=== PATIENT | female | born 1940 | race Caucasian/White ===

== ENCOUNTER 2020-01-14 12:03 | Inpatient (IN) ==
[2020-01-14 12:49] LABS: Bilirubin,Urine Negative (Negative); Blood,Urine Negative (Negative); Clarity,Urine Clear (Clear); Color,Urine Dark Yellow (Yellow); Glucose,Urine (UA) Normal (Normal); Ketones,Urine Trace mg/dL (Negative); Leukocyte Esterase,Urine Trace (Negative); Nitrite,Urine Negative (Negative); Protein,Urine 30 mg/dL (Neg-Trace); Specific Gravity,Urine 1.024 (1.010-1.025); Urobilinogen,Urine Normal (Normal)
[2020-01-14 12:51] LABS: Basophils # 0.1 K/mcL (0.0-0.2); Basophils % 0.8 %; Eosinophils # 0.2 K/mcL (0.0-0.6); Eosinophils % 1.6 %; Hematocrit 42.4 % (35.3-44.9); Hemoglobin 13.7 g/dL (11.5-15.4); Immature Granulocytes % 0.5 % (0-4); Lymphocytes # 1.8 K/mcL (0.6-4.6); Lymphocytes % 19.1 %; Mean Corpuscular HGB Conc 32.3 g/dL (31.6-35.5); Mean Corpuscular Hemoglobin 28.3 pg (28.0-33.3); Mean Corpuscular Volume 87.6 fL (83.0-100.0); Mean Platelet Volume 10.1 fL (9.4-12.4); Monocytes # 0.8 K/mcL (0.0-1.3); Neutrophils # 6.4 K/mcL (1.6-8.9); Platelet Count 265 K/mcL (140-400); Red Blood Count 4.84 M/mcL (3.82-4.97); Red Cell Distribution Width 12.7 % (11.5-14.5); White Blood Count 9.3 K/mcL (4.3-11.1)
[2020-01-14 12:53] LABS: Bacteria,Urine None Seen per hpf (None-Few); Hyaline Casts,Urine None Seen per lpf (None-Few); Squamous Epithelial Cell,Urine Many per lpf (None-Few); WBC,Urine 0-3 per hpf (0-3)
[2020-01-14 13:02] LABS: INR 1.1; Prothrombin Time 12.2 Seconds (9.4-12.1)
[2020-01-14 13:15] LABS: Amphetamine Screen,Urine Negative ng/mL (Cutoff=1000); Barbiturate Screen,Urine Negative ng/mL (Cutoff=200); Benzodiazepines Screen,Urine Negative ng/mL (Cutoff=200); Cannabinoid Screen,Urine Negative ng/mL (Cutoff = 50); Cocaine Screen,Urine Negative ng/mL (Cutoff= 300); Opiate Screen,Urine Negative ng/mL (Cutoff=300); Phencyclidine Screen,Urine Negative ng/mL (Cutoff=25)
[2020-01-14 13:18] LABS: Activated Partial Thrombo Time 44.4 Seconds (26.0-36.0)
[2020-01-14 13:28] LABS: Acetaminophen < 10 mcg/mL (10-20); Alanine Aminotransferase 14 Units/L (7-52); Albumin 4.5 g/dL (3.5-5.7); Albumin/Globulin Ratio 1.4 (1.1-2.2); Alkaline Phosphatase 89 Units/L (34-104); Aspartate Amino Transferase 17 Units/L (13-39); BUN/Creatinine Ratio 16 (6-26); Bilirubin,Total 0.7 mg/dL (0.3-1.0); Blood Urea Nitrogen 17 mg/dL (8-23); Calcium 9.5 mg/dL (8.6-10.3); Carbon Dioxide 27 mEq/L (23-29); Chloride 101 mEq/L (98-107); Ethanol < 10 mg/dL (Less than 10); Globulin 3.3 g/dL (2.4-3.5); Glucose 122 mg/dL (70-105); Osmolality,Calculated 287 (280-300); Potassium 3.7 mEq/L (3.5-5.1); Salicylate < 2.5 mg/dL (15.0-30.0); Sodium 137 mEq/L (136-145); Total Protein 7.8 g/dL (6.4-8.9); Troponin I < 0.03 ng/mL (< 0.04); eGFR For African Americans > 60 (> 60); eGFR For Non-African Americans 51 (> 60)
[2020-01-14] MEDS ORDERED: levoFLOXacin 500 MG TABLET PO ONE (13:32)
[2020-01-14 13:48] LABS: Thyroid Stimulating Hormone 2.757 mcIU/mL (0.340-5.600)
[2020-01-14] MEDS ORDERED: *HR* LORazepam 0.5 MG TABLET PO PRN (16:44)
[2020-01-14] MEDS ORDERED: Mag Hydrox/Al Hydrox/Simeth 30 ML UDC PO PRN (16:47)
[2020-01-14] MEDS ORDERED: *HR* LORazepam 1 MG TABLET PO PRN (16:47)
[2020-01-14] MEDS ORDERED: *HR* LORazepam 2 MG/ML VIAL IM PRN (16:47)
[2020-01-14] MEDS ORDERED: Acetaminophen 325 MG TABLET PO PRN (16:47)
[2020-01-14] MEDS ORDERED: haloperidoL 5 MG TABLET PO PRN (16:47)
[2020-01-14] MEDS ORDERED: Haloperidol Lactate 5 MG/ML VIAL IM PRN (16:47)
[2020-01-14] MEDS ORDERED: MOM Conc 10 ML UD.LIQ PO PRN (16:47)
[2020-01-14] MEDS ORDERED: cloNIDine HCL 0.1 MG TABLET PO STA (20:14)
[2020-01-14] MEDS: traZODone 50 MG TABLET PO PRN (22:38)
[2020-01-14] MEDS: hydrOXYzine pamoate 25 MG CAPSULE PO PRN (22:38)
[2020-01-15] MEDS ORDERED: FLUoxetine 20 MG CAPSULE PO SCH (09:00)
[2020-01-15] MEDS: Metoprolol XL (24 HR) Succ 50 MG TAB.ER.24H PO SCH (09:19)
[2020-01-15] MEDS: amLODIPine 5 MG TABLET PO SCH (09:19)
[2020-01-15] MEDS: levoFLOXacin 500 MG TABLET PO SCH (09:19)
[2020-01-15] MEDS: BuPROPion XL (24 HR) 150 MG TABLET PO SCH (09:20)
[2020-01-15] MEDS: traZODone 50 MG TABLET PO PRN (22:04)
[2020-01-15] MEDS: hydrOXYzine pamoate 25 MG CAPSULE PO PRN (22:04)
[2020-01-16] MEDS: FLUoxetine 20 MG CAPSULE PO SCH (09:11)
[2020-01-16] MEDS: Metoprolol XL (24 HR) Succ 50 MG TAB.ER.24H PO SCH (09:12)
[2020-01-16] MEDS: amLODIPine 5 MG TABLET PO SCH (09:12)
[2020-01-16] MEDS: BuPROPion XL (24 HR) 150 MG TABLET PO SCH (09:13)
[2020-01-16] MEDS: levoFLOXacin 500 MG TABLET PO SCH (09:14)
[2020-01-16] MEDS: hydrOXYzine pamoate 25 MG CAPSULE PO PRN (23:02)
[2020-01-16] MEDS: traZODone 50 MG TABLET PO PRN (23:02)
[2020-01-17] MEDS: amLODIPine 5 MG TABLET PO SCH (09:30)
[2020-01-17] MEDS: Metoprolol XL (24 HR) Succ 50 MG TAB.ER.24H PO SCH (09:30)
[2020-01-17] MEDS: BuPROPion XL (24 HR) 150 MG TABLET PO SCH (09:30)
[2020-01-17] MEDS: FLUoxetine 20 MG CAPSULE PO SCH (09:31)
[2020-01-17] MEDS: levoFLOXacin 500 MG TABLET PO SCH (09:31)
[2020-01-17 10:00] VITALS: BP 128/80
== END 2020-01-17 11:35 | disposition home or self-care (01) | DRG 885 ==
LOC: EMEROOARM 12:03 → 1ANU 16:27
PROVIDERS: ADMIT Psychiatry & Neurology Psychiatry; ATTEND Psychiatry & Neurology Psychiatry

== ENCOUNTER 2022-01-16 17:34 | Inpatient (IN) ==
[2022-01-16] MEDS ORDERED: Ondansetron 4 MG/2 ML VIAL IVP PRN (19:54)
[2022-01-16] MEDS ORDERED: Acetaminophen 325 MG TABLET PO PRN (19:54)
[2022-01-16] MEDS ORDERED: Naloxone 0.4 MG/ML INJ IVP PRN (19:54)
[2022-01-16] MEDS ORDERED: Dextrose 4 GM Chewable Tablets PO PRN ×2 (19:57)
[2022-01-16] MEDS ORDERED: D5% in Water 1,000 ML IVC PRN (19:57)
[2022-01-16] MEDS ORDERED: *HR* Dextrose 50 % in Water (Syg) 50 ML SYRINGE IVP PRN (19:57)
[2022-01-16] MEDS ORDERED: *HR* HYDROmorphone (PF) 1 MG/ML SYRINGE IVP PRN (20:00)
[2022-01-16] MEDS ORDERED: *HR* OxyCODONE Immed Rel 5 MG TABLET PO PRN (20:00)
[2022-01-16] MEDS: 0.9 % Sodium Chloride 1,000 ML IVC SCH (21:27)
[2022-01-16 22:33] LABS: Bilirubin,Urine Negative (Negative); Blood,Urine Large (Negative); Clarity,Urine Clear (Clear); Color,Urine Light-Yellow (Yellow); Glucose,Urine (UA) Normal (Normal); Ketones,Urine Negative (Negative); Leukocyte Esterase,Urine Moderate (Negative); Mucus,Urine Few per lpf (None-Few); Nitrite,Urine Negative (Negative); PH,Urine 6.5 pH Units (5.0-8.0); Protein,Urine 30 mg/dL (Neg-Trace); RBC,Urine TNTC per hpf (0-3); Specific Gravity,Urine 1.012 (1.010-1.025); Urobilinogen,Urine Normal (Normal); WBC,Urine 50-100 per hpf (0-3)
[2022-01-17] MEDS: Insulin LISPRO 300 UNITS/3 ML VIAL SUBQ SCH ×3 (00:24→17:32)
[2022-01-17 01:14] LABS: Basophils % 0.1 %; Hematocrit 34.3 % (35.3-44.9); Hemoglobin 10.9 g/dL (11.5-15.4); Immature Granulocytes % 0.8 % (0-4); Lymphocytes # 0.6 K/mcL (0.6-4.6); Lymphocytes % 2.5 %; Mean Corpuscular HGB Conc 31.8 g/dL (31.6-35.5); Mean Corpuscular Hemoglobin 28.2 pg (28.0-33.3); Mean Corpuscular Volume 88.6 fL (83.0-100.0); Mean Platelet Volume 10.3 fL (9.4-12.4); Monocytes % 8.1 %; Platelet Count 185 K/mcL (140-400); Red Blood Count 3.87 M/mcL (3.82-4.97); Red Cell Distribution Width 13.7 % (11.5-14.5); Segmented Neutrophils % 88.5 %; White Blood Count 24.8 K/mcL (4.3-11.1)
[2022-01-17 01:27] LABS: INR 1.3; Prothrombin Time 14.1 Seconds (9.4-12.1)
[2022-01-17 01:35] LABS: Calcium 8.5 mg/dL (8.6-10.3); Magnesium 1.5 mg/dL (1.6-2.6); Phosphorous 3.2 mg/dL (2.7-4.5); Potassium 3.7 mEq/L (3.5-5.1)
[2022-01-17 01:40] LABS: Troponin I 0.04 ng/mL (< 0.04)
[2022-01-17 01:50] LABS: Thyroid Stimulating Hormone 2.429 mcIU/mL (0.340-5.600)
[2022-01-17] MEDS ORDERED: Magnesium Sulfate 1 GM/102 ML PIGGYBACK IVPB ONE (02:24)
[2022-01-17 02:25] LABS: Estimated Average Glucose 117 mg/dl; Hemoglobin A1C 5.7 %
[2022-01-17] MEDS ORDERED: Insulin LISPRO 300 UNITS/3 ML VIAL SUBQ SCH (07:30)
[2022-01-17] MEDS: 0.9 % Sodium Chloride 1,000 ML IVC SCH (07:48)
[2022-01-17] MEDS ORDERED: Piperacillin/Tazobactam 3.375 GM in 0.9 % Sodium Chloride Mini Bag 100 ML IVPB SCH ×2 (08:00→16:00)
[2022-01-17] MEDS ORDERED: *HR* OxyCODONE Immed Rel 5 MG TABLET PO PRN (08:31)
[2022-01-17] MEDS ORDERED: *HR* HYDROmorphone (PF) 1 MG/ML SYRINGE IVP PRN (08:33)
[2022-01-17] MEDS ORDERED: FLUoxetine 20 MG CAPSULE PO SCH (09:00)
[2022-01-17] MEDS ORDERED: Metoprolol XL (24 HR) Succ 50 MG TAB.ER.24H PO SCH (09:00)
[2022-01-17] MEDS ORDERED: amLODIPine 5 MG TABLET PO SCH (09:00)
[2022-01-17] MEDS ORDERED: *HR* HYDROmorphone PF 0.5 MG/0.5 ML SYRINGE IVP PRN (11:37)
[2022-01-17] MEDS ORDERED: Lidocaine -MPF 2% 2 ML VIAL ONE (11:42)
[2022-01-17] MEDS ORDERED: *HR* Propofol 200 MG/20 ML VIAL IVP ONE (11:42)
[2022-01-17] MEDS ORDERED: Ondansetron 4 MG/2 ML VIAL ONE (11:42)
[2022-01-17] MEDS ORDERED: *HR* FentaNYL (PF) 100 MCG/2 ML VIAL ONE (11:42)
[2022-01-17] MEDS ORDERED: Ondansetron 4 MG/2 ML VIAL IVP PRN (14:30)
[2022-01-17] MEDS ORDERED: D5% in Water 1,000 ML IVC PRN (14:30)
[2022-01-17] MEDS ORDERED: 0.9 % Sodium Chloride 1,000 ML IVC SCH (14:30)
[2022-01-17] MEDS ORDERED: Acetaminophen 325 MG TABLET PO PRN (14:30)
[2022-01-17] MEDS ORDERED: Naloxone 0.4 MG/ML INJ IVP PRN (14:30)
[2022-01-17] MEDS ORDERED: Dextrose 4 GM Chewable Tablets PO PRN ×2 (14:30)
[2022-01-17] MEDS ORDERED: *HR* Dextrose 50 % in Water (Syg) 50 ML SYRINGE IVP PRN (14:30)
[2022-01-17] MEDS: *HR* OxyCODONE Immed Rel 5 MG TABLET PO PRN (15:23)
[2022-01-17] MEDS ORDERED: Acetaminophen IV 1,000 MG/100 ML BAG IVPB ONE (20:12)
[2022-01-17] MEDS ORDERED: traZODone 50 MG TABLET PO PRN ×2 (21:00)
[2022-01-18] MEDS: Piperacillin/Tazobactam 3.375 GM in 0.9 % Sodium Chloride Mini Bag 100 ML IVPB SCH ×3 (02:18→17:33)
[2022-01-18] MEDS: Insulin LISPRO 300 UNITS/3 ML VIAL SUBQ SCH ×3 (02:22→17:34)
[2022-01-18 04:54] LABS: Basophils % 0.1 %; Hematocrit 31.7 % (35.3-44.9); Hemoglobin 10.2 g/dL (11.5-15.4); Immature Granulocytes % 0.6 % (0-4); Lymphocytes # 1.2 K/mcL (0.6-4.6); Lymphocytes % 7.8 %; Mean Corpuscular HGB Conc 32.2 g/dL (31.6-35.5); Mean Corpuscular Hemoglobin 28.3 pg (28.0-33.3); Mean Corpuscular Volume 88.1 fL (83.0-100.0); Mean Platelet Volume 10.7 fL (9.4-12.4); Monocytes # 0.9 K/mcL (0.0-1.3); Monocytes % 5.4 %; Neutrophils # 13.6 K/mcL (1.6-8.9); Platelet Count 159 K/mcL (140-400); Red Cell Distribution Width 13.7 % (11.5-14.5); Segmented Neutrophils % 86.1 %; White Blood Count 15.8 K/mcL (4.3-11.1)
[2022-01-18 05:11] LABS: Calcium 8.2 mg/dL (8.6-10.3); Potassium 4.2 mEq/L (3.5-5.1)
[2022-01-18] MEDS: 0.9 % Sodium Chloride 1,000 ML IVC SCH ×2 (08:12→17:32)
[2022-01-18] MEDS: Metoprolol XL (24 HR) Succ 50 MG TAB.ER.24H PO SCH (08:12)
[2022-01-18] MEDS: FLUoxetine 20 MG CAPSULE PO SCH (08:12)
[2022-01-18] MEDS: amLODIPine 5 MG TABLET PO SCH (08:12)
[2022-01-18] MEDS: *HR* OxyCODONE Immed Rel 5 MG TABLET PO PRN (10:30)
[2022-01-19] MEDS: Piperacillin/Tazobactam 3.375 GM in 0.9 % Sodium Chloride Mini Bag 100 ML IVPB SCH ×2 (02:07→09:36)
[2022-01-19] MEDS: 0.9 % Sodium Chloride 1,000 ML IVC SCH (03:36)
[2022-01-19 06:54] LABS: Basophils % 0.3 %; Eosinophils # 0.1 K/mcL (0.0-0.6); Eosinophils % 0.5 %; Hematocrit 29.6 % (35.3-44.9); Hemoglobin 9.4 g/dL (11.5-15.4); Immature Granulocytes % 0.4 % (0-4); Lymphocytes # 1.7 K/mcL (0.6-4.6); Lymphocytes % 12.2 %; Mean Corpuscular HGB Conc 31.8 g/dL (31.6-35.5); Mean Corpuscular Hemoglobin 27.9 pg (28.0-33.3); Mean Corpuscular Volume 87.8 fL (83.0-100.0); Mean Platelet Volume 10.9 fL (9.4-12.4); Monocytes # 1.2 K/mcL (0.0-1.3); Monocytes % 9.2 %; Neutrophils # 10.4 K/mcL (1.6-8.9); Platelet Count 143 K/mcL (140-400); Red Blood Count 3.37 M/mcL (3.82-4.97); Red Cell Distribution Width 13.9 % (11.5-14.5); Segmented Neutrophils % 77.4 %; White Blood Count 13.5 K/mcL (4.3-11.1)
[2022-01-19 07:10] LABS: Calcium 7.8 mg/dL (8.6-10.3); Potassium 3.7 mEq/L (3.5-5.1)
[2022-01-19] MEDS: FLUoxetine 20 MG CAPSULE PO SCH (08:27)
[2022-01-19] MEDS: Metoprolol XL (24 HR) Succ 50 MG TAB.ER.24H PO SCH (08:27)
[2022-01-19] MEDS: amLODIPine 5 MG TABLET PO SCH (08:27)
[2022-01-19] MEDS: Insulin LISPRO 300 UNITS/3 ML VIAL SUBQ SCH ×2 (09:38→12:31)
[2022-01-19 11:10] VITALS: BP 132/64; PULSE 91; TEMP 97.9; O2SAT 90
== END 2022-01-19 13:27 | disposition home or self-care (01) | DRG 660 ==
LOC: 3ANU → SUATTDRO 19:10
PROVIDERS: ADMIT Pharmacist; ATTEND Registered Nurse